=== PATIENT | male | born 1975 | race Caucasian/White ===

== ENCOUNTER 2024-01-09 12:55 | Emergency (ER) | payer OTHER, SELFPAY ==
[2024-01-09] VITALS (7 sets, daily range): BP systolic 140–154; BP diastolic 92–98; PULSE 72–87; RESP 15–18; TEMP 36.6; O2SAT 96–99
--- NOTE | 2024-01-09 | ECG_ITS ---
Test Date: 2024-01-09 15:58:45 Measurements Intervals [place] Rate: 79 P: 19 [place]: 179 QRS: -28 QRSD: 92 T: 61 QT: 382 QTc: 438 Interpretive Statements SINUS RHYTHM DELAYED PRECORDIAL R/S TRANSITION BASELINE ARTIFACT- V2-V6 BORDERLINE ECG No previous ECG available for comparison Electronically Signed On 01-09-2024 16:40:23 OIL BURNER JOURNEYMAN by Volodymyr Padgett D.O.
--- NOTE | ~2024-01-09 | XR_ITS ---
EXAMINATION: XR chest 2V DATE: 01/09/2024 14:14 INDICATION: Cough. TECHNIQUE: Frontal and lateral views of the chest were obtained. COMPARISON: None. FINDINGS: There is no pneumonia, pleural effusion, or pneumothorax. The heart size is normal. IMPRESSION: 1. No acute cardiopulmonary disease. Reviewed, dictated and finalized at location A. APIST SPEECH
--- NOTE | ~2024-01-09 | CT_ITS ---
Clinical indication:Cough shortness of breath and chest pain COMPARISON:Reference is made to plain film evaluation of the chest performed 5 hours earlier TECHNIQUE: Multiple contiguous axial images of the chest were performed following the administration of intravenous contrast. DLP: 707 mGy-cm FINDINGS: LUNG:The lungs are clear. MEDIASTINUM:No pathologically enlarged or morphologically suspicious lymph nodes are identified withi n the mediastinum. HEART:The heart is enlarged, without pericardial effusion. SOFT TISSUES OF THE CHEST: Incidental notation is made of gynecomastia. BONES OF THE CHEST: No acute compression fractures. No lytic or blastic lesions. VISUALIZED PORTION OF THE UPPER ABDOMEN: Unremarkable. IMPRESSION: Unremarkable contrast-enhanced CT of the chest, as detailed above. Reviewed, dictated and finalized at location A. RAL DISTRICT CLERK
--- NOTE | 2024-01-09 14:03 | ED_ITS ---
HPI - URI/Sore Throat General Chief Complaint: Upper Respiratory Infection <Cristina Saha PA-C - Last Filed: 01/09/24 14:04> Stated Complaint: cough, SOB <Cristina Saha PA-C - Last Filed: 01/09/24 14:04> Time Seen by Provider: 01/09/24 16:59 <Cristina Saha PA-C - Last Filed: 01/09/24 14:04> Focused HPI: 48-year-old male presents emergency department for cough and congestion for 1 week. Patient reports positive sick contacts at work. Reports of productive cough and pain with coughing. Denies fever, nausea or vomiting. He has history of ANGELICA and smoking 1 pack a day for 25 years. Denies history of asthma or COPD GENERAL: Well-appearing, well-nourished, and in no acute distress. HEAD: Normocephalic, atraumatic. CHEST: Inspiratory expiratory rhonchi in the left upper lung field, otherwise clear to auscultation. No wheezing or rales. No respiratory distress. HEART: Regular rate and rhythm.? NEURO: ?Alert and oriented x3. Patient screened in triage and initial orders placed.? ?Additional care and disposition to be based upon?diagnostic testing and treatment. <Cristina Saha PA-C - Last Filed: 01/09/24 14:04> Focused HPI: 48-year-old male presents emergency department for cough and congestion for 1 week. Patient reports positive sick contacts at work. Reports of productive cough and pain with coughing. Denies fever, nausea or vomiting. He has history of ANGELICA and smoking 1 pack a day for 25 years. Denies history of asthma or COPD GENERAL: Well-appearing, well-nourished, and in no acute distress. HEAD: Normocephalic, atraumatic. CHEST: Inspiratory expiratory rhonchi in the left upper lung field, otherwise clear to auscultation. No wheezing or rales. No respiratory distress. HEART: Regular rate and rhythm.? NEURO: ?Alert and oriented x3. Patient screened in triage and initial orders placed.? ?Additional care and disposition to be based upon?diagnostic testing and treatment. <Kerri Bryant PA-C - Last Filed: 01/09/24 22:02> Source: patient <SHAHLA [place] Last Filed: 01/09/24 22:02> Mode of arrival: ambulatory <SHAHLA [place] Last Filed: 01/09/24 22:02> Limitations: no limitations <SHAHLA [place] Last Filed: 01/09/24 22:02> History of Present Illness HPI Narrative: Agree with above HPI. Does report mild occasional shortness of breath. Denies lower extremity edema or fevers. <SHAHLA [place] Last Filed: 01/09/24 22:02> Related Data Allergies/Adverse Reactions: Allergies Allergy/AdvReac Type Severity Reaction Status Date / Time No Known Allergies Allergy Mild Verified 06/14/17 10:40 <SHAHLA Leung Last Filed: 01/09/24 14:04> Review of Systems Review of Systems: All systems reviewed & are unremarkable except as noted in HPI. <SHAHLA [place] Last Filed: 01/09/24 22:02> All systems reviewed & are unremarkable except as noted in HPI and below <SHAHLA [place] Last Filed: 01/09/24 22:02> Exam Narrative: GENERAL: Well appearing, obese with BMI of 37.9, non-toxic, in no acute distress. HEAD: Normocephalic, atraumatic. RESPIRATORY: Airway patent, respirations nonlabored. Diffuse rhonchi throughout lung bases bilaterally with occasional expiratory wheezing. No stridor or distress. CARDIOVASCULAR: Regular rate and rhythm without murmurs, rubs, or gallops. Peripheral pulses intact. MUSCULOSKELETAL: Moves all extremities. No gross deformities. SKIN: Warm, dry, normal color. NEURO: A&O X3. Speech clear. PSYCHIATRIC: Appropriate mood and affect. Normal interaction. <SHAHLA [place] Last Filed: 01/09/24 22:02> Course Vital Signs Vital signs: Vital Signs Temperature 97.8 F 01/09/24 13:00 Pulse Rate 86 01/09/24 13:00 Respiratory Rate 15 01/09/24 13:00 Blood Pressure 154/96 H 01/09/24 13:00 Pulse Oximetry 99 01/09/24 13:00 Temperature 97.9 F 01/09/24 20:41 Pulse Rate 87 01/09/24 20:41 Respiratory Rate 16 01/09/24 20:41 Blood Pressure 140/98 H 01/09/24 20:41 Pulse Oximetry 98 01/09/24 20:41 Oxygen Delivery Room Air 01/09/24 16:58 <Cristina Saha PA-C - Last Filed: 01/09/24 14:04> Vital Signs Temperature 97.8 F 01/09/24 13:00 Pulse Rate 86 01/09/24 13:00 Respiratory Rate 15 01/09/24 13:00 Blood Pressure 154/96 H 01/09/24 13:00 Pulse Oximetry 99 01/09/24 13:00 Temperature 97.9 F 01/09/24 20:41 Pulse Rate 87 01/09/24 20:41 Respiratory Rate 16 01/09/24 20:41 Blood Pressure 140/98 H 01/09/24 20:41 Pulse Oximetry 98 01/09/24 20:41 Oxygen Delivery Room Air 01/09/24 16:58 <Kerri Bryant PA-C - Last Filed: 01/09/24 22:02> MDM - URI/Sore Throat MDM Narrative Medical decision making narrative: Patient presented to ED with several day -week history of cough, congestion, mild shortness of breath. Vital signs are stable upon arrival. Patient is afebrile here. Oxygen stable on room air. Patient with diffuse rhonchi and occasional expiratory wheezing on exam. Nebulizer machine ordered. CBC with white blood cell count of 11.9. CMP is unremarkable. Viral swabs are negative. EKG without concerning ST changes. Some baseline artifact. Troponin is undetectable. Initial chest x-ray is clear. Suspicious for bacterial process versus COPD flare. Low suspicion for PE. No tachycardia or hypoxia, no evidence of DVT on exam. Patient denies previous diagnosis of COPD, but is a daily smoker. CT of chest obtained and also unremarkable. Patient feeling better after nebulizer treatment. Will cover for potential bacterial process given leukocytosis with antibiotics, steroid pack, will also prescribe inhaler and Tessalon Perles. Patient advised to have close follow-up with PCP for further evaluation. He was given strict return precautions. He agrees with plan and feels comfortable going home. Discharged in stable condition. Vital signs stable at time of D/C. <Kerri Bryant PA-C - Last Filed: 01/09/24 22:02> Medical Records Attestation: I reviewed the patient's medical records. <Kerri Bryant PA-C - Last Filed: 01/09/24 22:02> Lab Data Attestation: I reviewed the patient's lab results. <Kerri Bryant PA-C - Last Filed: 01/09/24 22:02> Result diagrams: 01/09/24 15:58 01/09/24 15:58 <Cristina Saha PA-C - Last Filed: 01/09/24 14:04> Labs: Lab Results 01/09/24 01/09/24 Range/Units 15:56 15:58 WBC 11.9 H (4.5-10.0) K/mm3 RBC 5.29 (4.6-6.20) M/mm3 Hgb 17.0 (14.0-18.0) g/dL Hct 47.5 (42.0-52.0) % MCV 89.8 (80-100) fl MCH 32.1 (26-34) pg MCHC 35.8 (32-36) g/dl RDW 12.3 (11.5-14.5) % Plt Count 197 (150-375) k/mm3 MPV 11.3 H (7.4-10.4) fl Immature Gran % (Auto) 0.4 (0-0.5) % Neut % (Auto) 70.0 (45.5-73.1) % Lymph % (Auto) 23.4 (18.3-44.2) % [place] % (Auto) 4.9 (2.6-8.5) % Eos % (Auto) 0.8 (0-4.4) % Baso % (Auto) 0.5 (0.2-1.2) % Lymph # (Auto) 2.78 (0.9-3.2) K/mm3 [place] # (Auto) 0.6 (0.1-0.6) K/mm3 Eos # (Auto) 0.1 (0-0.3) K/mm3 Baso # (Auto) 0.1 (0.0-0.1) K/mm3 Abs Immat Gran (auto) 0.05 H (0.00-0.031) K/mm3 Absolute Neuts (auto) 8.3 H (1.3-6.7) K/mm3 Absolute Nucleated RBC 0.000 (0.0-0.012) K/mm3 Nucleated RBC % 0.0 (0.0-0.2) % Sodium 138 (137-145) mmol/L Potassium 3.4 (3.4-5.0) mmol/L Chloride 105 (98-107) mmol/L Carbon Dioxide 21 L (22-30) mmol/L Anion Gap 12 (4-12) mmol/L BUN 10 (9-20) mg/dL Creatinine 0.80 (0.7-1.3) mg/dL Estim Creat Clear Calc 121 ml/min Estimated GFR > 60 (59 - ) Glucose 143 H (65-110) mg/dL Calcium 9.4 (8.4-10.2) mg/dL Total Bilirubin 0.4 (0.2-1.3) mg/dL AST 32 (17-59) U/L ALT 29 (6-50) U/L Alkaline Phosphatase 82 (38-126) U/L Troponin I < 0.012 (0.000-0.034) ng/mL Total Protein 8.0 (6.3-8.2) g/dL Albumin 4.6 (3.5-5.1) g/dL Influenza A (RT-PCR) Negative (Negative) Influenza B (RT-PCR) Negative (Negative) RSV (RT-PCR) Negative (Negative) SARS-CoV-2 RNA (RT-PCR) Negative (Negative) <Cristina Saha PA-C - Last Filed: 01/09/24 14:04> Lab Results 01/09/24 01/09/24 Range/Units 15:56 15:58 WBC 11.9 H (4.5-10.0) K/mm3 RBC 5.29 (4.6-6.20) M/mm3 Hgb 17.0 (14.0-18.0) g/dL Hct 47.5 (42.0-52.0) % MCV 89.8 (80-100) fl MCH 32.1 (26-34) pg MCHC 35.8 (32-36) g/dl RDW 12.3 (11.5-14.5) % Plt Count 197 (150-375) k/mm3 MPV 11.3 H (7.4-10.4) fl Immature Gran % (Auto) 0.4 (0-0.5) % Neut % (Auto) 70.0 (45.5-73.1) % Lymph % (Auto) 23.4 (18.3-44.2) % [place] % (Auto) 4.9 (2.6-8.5) % Eos % (Auto) 0.8 (0-4.4) % Baso % (Auto) 0.5 (0.2-1.2) % Lymph # (Auto) 2.78 (0.9-3.2) K/mm3 [place] # (Auto) 0.6 (0.1-0.6) K/mm3 Eos # (Auto) 0.1 (0-0.3) K/mm3 Baso # (Auto) 0.1 (0.0-0.1) K/mm3 Abs Immat Gran (auto) 0.05 H (0.00-0.031) K/mm3 Absolute Neuts (auto) 8.3 H (1.3-6.7) K/mm3 Absolute Nucleated RBC 0.000 (0.0-0.012) K/mm3 Nucleated RBC % 0.0 (0.0-0.2) % Sodium 138 (137-145) mmol/L Potassium 3.4 (3.4-5.0) mmol/L Chloride 105 (98-107) mmol/L Carbon Dioxide 21 L (22-30) mmol/L Anion Gap 12 (4-12) mmol/L BUN 10 (9-20) mg/dL Creatinine 0.80 (0.7-1.3) mg/dL Estim Creat Clear Calc 121 ml/min Estimated GFR > 60 (59 - ) Glucose 143 H (65-110) mg/dL Calcium 9.4 (8.4-10.2) mg/dL Total Bilirubin 0.4 (0.2-1.3) mg/dL AST 32 (17-59) U/L ALT 29 (6-50) U/L Alkaline Phosphatase 82 (38-126) U/L Troponin I < 0.012 (0.000-0.034) ng/mL Total Protein 8.0 (6.3-8.2) g/dL Albumin 4.6 (3.5-5.1) g/dL Influenza A (RT-PCR) Negative (Negative) Influenza B (RT-PCR) Negative (Negative) RSV (RT-PCR) Negative (Negative) SARS-CoV-2 RNA (RT-PCR) Negative (Negative) <Kerri Bryant PA-C - Last Filed: 01/09/24 22:02> Imaging Data Attestation: I personally reviewed and interpreted this imaging study as follows: <Kerri Bryant PA-C - Last Filed: 01/09/24 22:02> Radiologist's impression: ITS Impressions Chest X-Ray 01/09/24 14:17 IMPRESSION: 1. No acute cardiopulmonary disease. Chest CT 01/09/24 20:09 IMPRESSION: Unremarkable contrast-enhanced CT of the chest, as detailed above. <Kerri Bryant PA-C - Last Filed: 01/09/24 22:02> ECG Data EKG #1: Attestation: I personally reviewed and interpreted this ECG as follows: <Kerri Bryant PA-C - Last Filed: 01/09/24 22:02> ECG completion date: 01/09/24 <Kerri Bryant PA-C - Last Filed: 01/09/24 22:02> ECG completion time: 15:58 <Kerri Bryant PA-C - Last Filed: 01/09/24 22:02> EKG Interpretation: normal rate (79), sinus rhythm, non-specific ST changes and other (baseline artifact and wander) <Kerri Bryant PA-C - Last Filed: 01/09/24 22:02> Discharge Plan Discharge Clinical Impression: Upper respiratory infection Qualifiers: URI type: unspecified URI Qualified Code(s): J06.9 - Acute upper respiratory infection, unspecified <Cristina Saha PA-C - Last Filed: 01/09/24 14:04> Patient Disposition: Home, Self-Care <Cristina Saha PA-C - Last Filed: 01/09/24 14:04> Condition: Stable <Cristina Saha PA-C - Last Filed: 01/09/24 14:04> Instructions: Antibiotic Form, How to Stop Smoking (ED), COPD (Chronic Obstructive Pulmonary Disease) (ED), Cold Symptoms (ED), Pneumonia (ED) <Cristina Saha PA-C - Last Filed: 01/09/24 14:04> Additional Instructions: Take antibiotics and steroids as prescribed. Utilize inhaler as needed for shortness of breath. Utilize Tessalon Perles as needed for cough. Tylenol and Ibuprofen for discomfort and/or fevers. Recommend [id number] cough and cold medicines for symptom relief, Delsym, Mucinex, DayQuil, NyQuil, Sudafed, Robitussin, TheraFlu. Follow with primary care doctor for further evaluation. Call office to make appointment and establish care. Return to the ED if you experience chest pain, difficulty breathing, unable to keep down food or drink, severe pain, or any other symptoms of concern. <Cristina Saha PA-C - Last Filed: 01/09/24 14:04> Prescriptions: New azithromycin [Zithromax Z-Ramez] 250 mg tablet See Rx Instructions .ROUTE .COMPLEX Qty: 6 0RF Rx Instructions: For 250 mg dose pack: take 500 mg today (day 1), then 250 mg for 4 days (days 2-5) methylprednisolone [Medrol (Ramez)] 4 mg tablets,dose pack See Rx Instructions PO .COMPLEX Qty: 21 0RF Rx Instructions: orally per package directions benzonatate 200 mg capsule 200 mg PO TID PRN (Reason: cough) Qty: 15 0RF albuterol sulfate 90 mcg/actuation HFA aerosol inhaler 2 puff inhalation QID PRN (Reason: shortness of breath or wheezing) Qty: 6.7 0RF <Cristina Saha PA-C - Last Filed: 01/09/24 14:04> Follow-up/Referrals: Glynn Luu MD [Physician] - (PRIMARY CARE) PHYSICIAN,LAW PROFESSOR [Non-Staff] - <Cristina Saha PA-C - Last Filed: 01/09/24 14:04> Stand Alone Forms: Work/School Release IP <Cristina Saha PA-C - Last Filed: 01/09/24 14:04> Time of Disposition: 20:25 <Cristina Saha PA-C - Last Filed: 01/09/24 14:04> 20:25 <Kerri Bryant PA-C - Last Filed: 01/09/24 22:02>
[2024-01-09 16:04] LABS: Basophils Absolute Auto 0.1 K/mm3 (0.0-0.1); Basophils Percent Auto 0.5 % (0.2-1.2); Eosinophils Absolute Auto 0.1 K/mm3 (0-0.3); Eosinophils Percent Auto 0.8 % (0-4.4); Hematocrit 47.5 % (42.0-52.0); Immature Granulocyte Absolute 0.05 K/mm3 (0.00-0.031); Immature Granulocyte Percent A 0.4 % (0-0.5); Lymphocytes Absolute Auto 2.78 K/mm3 (0.9-3.2); Lymphocytes Percent Auto 23.4 % (18.3-44.2); Mean Corpuscular HGB Conc 35.8 g/dl (32-36); Mean Corpuscular Hemoglobin 32.1 pg (26-34); Mean Corpuscular Volume 89.8 fl (80-100); Mean Platelet Volume 11.3 fl (7.4-10.4); Monocytes Absolute Auto 0.6 K/mm3 (0.1-0.6); Monocytes Percent Auto 4.9 % (2.6-8.5); Neutrophils Absolute Auto 8.3 K/mm3 (1.3-6.7); Platelet Count Result 197 k/mm3 (150-375); Red Blood Count 5.29 M/mm3 (4.6-6.20); Red Cell Distribution Width 12.3 % (11.5-14.5); White Blood Count 11.9 K/mm3 (4.5-10.0)
[2024-01-09 16:16] LABS: Alanine Aminotransferase 29 U/L (6-50); Albumin Level 4.6 g/dL (3.5-5.1); Alkaline Phosphatase 82 U/L (38-126); Anion Gap 12 mmol/L (4-12); Aspartate Amino Transferase 32 U/L (17-59); Bilirubin,Total 0.4 mg/dL (0.2-1.3); Blood Urea Nitrogen 10 mg/dL (9-20); Calcium 9.4 mg/dL (8.4-10.2); Carbon Dioxide 21 mmol/L (22-30); Chloride 105 mmol/L (98-107); Estimated CRCL calculation 121 ml/min; Estimated Glomerular Filt Rate > 60; Glucose 143 mg/dL (65-110); Potassium 3.4 mmol/L (3.4-5.0); Sodium 138 mmol/L (137-145)
[2024-01-09 16:42] LABS: Influenza A QL RT-PCR Negative (Negative); Influenza B QL RT-PCR Negative (Negative); RSV RNA, RT-PCR Negative (Negative); SARS-CoV-2 RNA PCR Negative (Negative)
--- NOTE | 2024-01-09 17:45 | ECG_ITS ---
Test Date: 2024-01-09 18:00:38 Measurements Intervals [place] Rate: 68 P: 42 MT: 188 QRS: -28 QRSD: 79 T: 60 QT: 381 QTc: 407 Interpretive Statements SINUS RHYTHM BASELINE ARTIFACT- I, II, III NORMAL ECG Compared to ECG 01/09/2024 15:58:45 No significant changes Electronically Signed On 01-09-2024 20:18:45 TRANSMITTER OPERATOR by Volodymyr Padgett D.O.
[2024-01-09] MEDS: LEVALBUTEROL NEB 1.25 MG/3 ML 2.5 MG INHALATION (17:59)
[2024-01-09] MEDS: IPRATROPIUM BR 0.02% INH SOLN 0.5 MG/2.5 ML VIAL 1.5 MG INHALATION (17:59)
[2024-01-09 18:10] LABS: Troponin I < 0.012 ng/mL (0.000-0.034)
== END 2024-01-09 20:43 | disposition home or self-care (01) ==
PROVIDERS: Physician Assistant; Emergency Provider Physician Assistant
DX: J06.9 Acute upper respiratory infection, unspecified (principal); G47.33 Obstructive sleep apnea (adult) (pediatric); F17.210 Nicotine dependence, cigarettes, uncomplicated; Z20.822 Contact with and (suspected) exposure to COVID-19
CPT/HCPCS: 36415; 71046; 71260; 80053; 84484; 85025; 87637; 93005; 94640; 99284; Q9967

== ENCOUNTER 2024-09-21 13:53 | Emergency (ER) | payer OTHER, SELFPAY ==
--- NOTE | ~2024-09-21 | XR_ITS ---
XR ankle RT min 3V 09/21/2024 16:05 Indication: Right ankle pain Procedure: 4 views right ankle Comparison: No prior studies for comparison. Findings: No fracture, subluxation or dislocation. There is a degenerative calcaneal enthesophyte. No foreign bodies. There is sclerosis along the distal aspect of the tibia. Impression: 1: No acute fracture or traumatic malalignment. Reviewed, dictated and finalized at location B. Impression: 1: No acute fracture or traumatic malalignment.
--- OUTSIDE RECORDS SUMMARY | 2024-09-21 14:00 | XMS_ITS | Clinical Summary ---
Author Organization [employer] [facility] Address [address] [place] [address] Phone Care Team Providers Care Checker In Name Role Phone Unavailable Primary Care Provider Unavailabl e Social History Tobacco Use Types Packs/Day Years Used Date Smoking Tobacco: Never Assessed Sex and Gender Information Value Date Recorded Sex Assigned at Not on file Legal Sex Male 11:56 AM CDT Gender Identity Not on file Sexual Orientation Not on file Plan of Treatment Health Maintenance Due Date Last Done Comments DTAP/TDAP/TD VACCINES (1 - Tdap) 06/15/1995 HEPATITIS B VACCINES (1 of 3 - 19+ 3-dose series) 05/27 COLORECTAL SCREENING 2021 Colorectal Cancer Screening 2021 FIT-DNA Q 3 years 2021 FIT/FOBT Q 1 year 2021 Flex Sig/CT Colonography Q 5 years 2021 INFLUENZA VACCINE (#1) 2024
[2024-09-21 14:01] VITALS: BP 139/95; PULSE 82; RESP 20; TEMP 36.6; O2SAT 97
--- OUTSIDE RECORDS SUMMARY | 2024-09-21 14:33 | XMS_ITS | Clinical Summary ---
Author Organization [facility] Address [address] [place] [address] Phone Care Team Providers Care Order Processing Manager Name Role Phone Unavailable Primary Care Provider [...]
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
[2024-09-21 18:32] LABS: Hematocrit 45.0 % (42.0-52.0); Hemoglobin 15.8 g/dL (14.0-18.0); Immature Granulocyte Percent A 0.6 % (0-0.5); Lymphocytes Absolute Auto 3.84 K/mm3 (0.9-3.2); Mean Corpuscular HGB Conc 35.1 g/dl (32-36); Mean Corpuscular Hemoglobin 31.5 pg (26-34); Mean Corpuscular Volume 89.6 fl (80-100); Nucleated Red Blood Cells Absolute Auto 0.000 K/mm3 (0.0-0.012); Nucleated Red Blood Cells Perc 0.0 % (0.0-0.2); Platelet Count Result 245 k/mm3 (150-375); Red Blood Count 5.02 M/mm3 (4.6-6.20); White Blood Count 10.3 K/mm3 (4.5-10.0)
[2024-09-21 18:44] LABS: INR 1.0; Prothrombin Time 13.2 Seconds (11.1-14.7)
[2024-09-21 18:45] LABS: Partial Thromboplastin Time 33.3 Seconds (22.3-36.8)
[2024-09-21 18:49] LABS: Alanine Aminotransferase 40 U/L (6-50); Albumin Level 4.4 g/dL (3.5-5.1); Alkaline Phosphatase 87 U/L (38-126); Anion Gap 12 mmol/L (4-12); Aspartate Amino Transferase 43 U/L (17-59); Bilirubin,Total 0.5 mg/dL (0.2-1.3); Blood Urea Nitrogen 11 mg/dL (9-20); CRP < 0.5 mg/dL (<1.0); Calcium 9.5 mg/dL (8.4-10.2); Carbon Dioxide 18 mmol/L (22-30); Chloride 108 mmol/L (98-107); Estimated CRCL calculation 109 ml/min; Estimated Glomerular Filt Rate > 60; Glucose 85 mg/dL (65-110); Potassium 3.7 mmol/L (3.4-5.0); Sodium 138 mmol/L (137-145); Total Protein 8.0 g/dL (6.3-8.2)
[2024-09-21] MEDS: KETOROLAC 15 MG/ML VIAL (*BKC) IV PUSH (19:13)
== END 2024-09-21 20:00 | disposition home or self-care (01) ==
PROVIDERS: Registered Nurse; Emergency Provider Emergency Medicine
DX: S91.001A Unspecified open wound, right ankle, initial encounter (principal); X58.XXXA Exposure to other specified factors, initial encounter
CPT/HCPCS: 36415; 73610; 80053; 83605; 85025; 85610; 85730; 86140; 96361; 96374; 96375; 99284; J0690; J1885

== ENCOUNTER 2024-10-12 16:46 | Emergency (ER) | payer OTHER, SELFPAY ==
--- NOTE | ~2024-10-12 | CT_ITS ---
CT scan of the right ankle CLINICAL HISTORY: Osteomyelitis TECHNIQUE: Following intravenous administration of 100 cc of Omnipaque 350 contrast material, axial imaging of the right ankle was performed. Sagittal and coronal reformatted images were constructed. Dose reduction technique was used on this scan by utilizing automated exposure control and iterative re construction technique. The dose-length product (DLP) was 413.87 mGy-cm. Findings: No acute fracture or dislocation seen. Joint spaces are intact. No significant joint effusion evident. There is soft tissue ulcer at the medial aspect of the ankle at the level distal tibia. There is associated soft tissue thickening in this region without definite abscess. Remaining soft tissues are grossly unremarkable for CT scan. IMPRESSION: Soft tissue ulcer at the medial aspect of the ankle at the level of the distal tibia. No definite abscess. No definite CT evidence for osteomyelitis. MR would be more sensitive for early osteomyelitis, and is recommended for further evaluation as indicated. Reviewed, dictated and finalized at [facility].
--- NOTE | ~2024-10-12 | XR_ITS ---
XR ankle RT min 3V 10/12/2024 18:11 Indication: Wound over medial malleolus Procedure: 4 views right ankle Comparison: 09/21/2024 Findings: Mild degenerative changes of the ankle. Mild soft tissue swelling at the medial malleolus. No evidence for osteomyelitis. No erosive changes. There is evidence of cortical sclerosis involving the metaphysis of the distal tibia. There is mild periosteal reaction along the distal tibia. Small d egenerative calcaneal enthesophyte. Impression: 1: Mild periosteal reaction along the distal tibia with adjacent sclerosis. Consider underlying osteo myelitis in the appropriate clinical setting. Consider further evaluation with MRI of the ankle with contrast. Reviewed, dictated and finalized at location A. Impression: 1: Mild periosteal reaction along the distal tibia with adjacent sclerosis. 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 Consider fu rther evaluation with MRI of the ankle with contrast.
--- OUTSIDE RECORDS SUMMARY | 2024-10-12 16:48 | XMS_ITS | Clinical Summary ---
Author Organization [email or web address] [facility] Address [address] [place] [address] Phone Care Team Providers Care Refrigeration Insulator Name Role Phone Unavailable Primary Care Provider [...]
[2024-10-12 16:51] VITALS: BP 145/94; PULSE 77; RESP 18; TEMP 36.7; O2SAT 97
--- NOTE | 2024-10-12 17:58 | ED_ITS ---
HPI - Wound/Laceration General Chief Complaint: Wound/Laceration <Rossi Huff PA-C - Last Filed: 10/13/24 10:40> Stated Complaint: wound on ankle- vomiting <Rossi Huff PA-C - Last Filed: 10/13/24 10:40> Time Seen by Provider: 10/12/24 17:58 <Rossi Huff PA-C - Last Filed: 10/13/24 10:40> Focused HPI: This is a 49 year old male that presents to the ER for a wound on his right leg. Reports this has been present for 3 months. He was seen on the and was started on antibiotics. Culture resulted as staph. Reports he is supposed to have an MRI done for a possible bone infection. He has seen podiatry. Reports he feels ill and is vomiting the last couple of days. Denies fevers. GENERAL: Well-appearing, well-nourished, and in no acute distress. HEAD: Normocephalic, atraumatic. CHEST: No respiratory distress. HEART: Regular rate NEURO: ?Alert and oriented x3. Patient screened in triage and initial orders placed.? ?Additional care and disposition to be based upon?diagnostic testing and treatment. <Rossi Huff PA-C - Last Filed: 10/13/24 10:40> History of Present Illness HPI narrative: Agree with the HPI <Thien Cevallos MD - Last Filed: 10/12/24 22:22> Related Data Allergies/Adverse Reactions: Allergies Allergy/AdvReac Type Severity Reaction Status Date / Time No Known Allergies Allergy Mild Verified 09/21/24 14:07 <Rossi Huff PA-C - Last Filed: 10/13/24 10:40> Review of Systems 2 Review of Systems: Gen.: Denies fevers or chills Eyes: Denies eye pain or visual change ENT: Denies congestion Respiratory: Denies shortness of breath or cough CV: Denies chest pain or palpitations GI: Denies abdominal pain nausea, emesis or diarrhea denies burning, urgency, frequency or hematuria Musculoskeletal: Denies back pain or muscle pain Neuro: Denies numbness, tingling, weakness or focal weakness Skin: Wound to the right ankle Except as documented, all other systems reviewed and negative <Thien Cevallos MD - Last Filed: 10/12/24 22:22> Exam 2 Narrative: APPEARANCE: No acute distress, nontoxic, resting in bed EYES: EOMI HEENT: Normocephalic, atraumatic, OMM RESPIRATORY: No respiratory distress Clear to auscultation bilaterally with no rhonchi wheezing or rales. CARDIOVASCULAR: Regular rate and rhythm without murmurs rubs or gallops. ABDOMINAL: Soft, nontender, nondistended, no rebound or guarding MUSCULOSKELETAl: Moves all extremities. No clubbing, cyanosis or edema. NEURO: Awake and alert. Following commands, speech normal, no focal deficits SKIN:: Tunneling wound superior to the right medial malleolus with purulence within it. PSYCHIATRIC: Normal affect/mood, <Thien Cevallos MD - Last Filed: 10/12/24 22:22> Course Vital Signs Vital signs: Vital Signs Temperature 98.0 F 10/12/24 16:51 Pulse Rate 77 10/12/24 16:51 Respiratory Rate 18 10/12/24 16:51 Blood Pressure 145/94 H 10/12/24 16:51 Pulse Oximetry 97 10/12/24 16:51 Oxygen Delivery Room Air 10/12/24 16:51 Temperature 98.7 F 10/13/24 02:31 Pulse Rate 86 10/13/24 02:31 Respiratory Rate 16 10/13/24 02:31 Blood Pressure 133/71 10/13/24 02:31 Pulse Oximetry 97 10/13/24 02:31 Oxygen Delivery Room Air 10/12/24 16:51 <Rossi Huff PA-C - Last Filed: 10/13/24 10:40> Vital Signs Temperature 98.0 F 10/12/24 16:51 Pulse Rate 77 10/12/24 16:51 Respiratory Rate 18 10/12/24 16:51 Blood Pressure 145/94 H 10/12/24 16:51 Pulse Oximetry 97 10/12/24 16:51 Oxygen Delivery Room Air 10/12/24 16:51 Temperature 98.7 F 10/13/24 02:31 Pulse Rate 86 10/13/24 02:31 Respiratory Rate 16 10/13/24 02:31 Blood Pressure 133/71 10/13/24 02:31 Pulse Oximetry 97 10/13/24 02:31 Oxygen Delivery Room Air 10/12/24 16:51 <Thien Cevallos MD - Last Filed: 10/12/24 22:22> Vital Signs Temperature 98.0 F 10/12/24 16:51 Pulse Rate 77 10/12/24 16:51 Respiratory Rate 18 10/12/24 16:51 Blood Pressure 145/94 H 10/12/24 16:51 Pulse Oximetry 97 10/12/24 16:51 Oxygen Delivery Room Air 10/12/24 16:51 Temperature 98.7 F 10/13/24 02:31 Pulse Rate 86 10/13/24 02:31 Respiratory Rate 16 10/13/24 02:31 Blood Pressure 133/71 10/13/24 02:31 Pulse Oximetry 97 10/13/24 02:31 Oxygen Delivery Room Air 10/12/24 16:51 <Jeronimo Neumann MD - Last Filed: 10/13/24 02:31> MDM - Wound/Laceration MDM Narrative Medical decision making narrative: 49-year-old male presenting to the ED for right ankle wound. Patient already taken antibiotics and had an MRI scheduled but this was rescheduled due to staffing issues. Patient was concerned as the wound has continued despite the antibiotics. There is no erythematous streaking. Mild tenderness around the area. There is suspicion that maybe tunneling and could be a developing osteomyelitis. He had a leukocytosis of 11. CRP negative. Use are negative. X-ray ankle did show possible mild periosteal reaction that could be consistent with osteomyelitis. Will obtain CT ankle to further characterize as MRI not available at this time. Patient will be started empirically on cefepime, vanc, flagyl. CT ankle pending. Signed out to incoming provider. <Thien Cevallos MD - Last Filed: 10/12/24 22:22> 49-year-old male presenting to the ED for right ankle wound. Patient already taken antibiotics and had an MRI scheduled but this was rescheduled due to staffing issues. Patient was concerned as the wound has continued despite the antibiotics. There is no erythematous streaking. Mild tenderness around the area. There is suspicion that maybe tunneling and could be a developing osteomyelitis. He had a leukocytosis of 11. CRP negative. Use are negative. X-ray ankle did show possible mild periosteal reaction that could be consistent with osteomyelitis. Will obtain CT ankle to further characterize as MRI not available at this time. Patient will be started empirically on cefepime, vanc, flagyl. CT ankle pending. Signed out to incoming provider. --- Patient is currently afebrile but does have a leukocytosis 11.0 hemoglobin of 15.3. No acute abnormalities on his CMP patient had a negative CRP, negative ESR and a hemoglobin A1c of 5.5. Ankle x-ray was concerning and did recommend a ankle CT. Ankle CT showed no abscess amenable to drainage in showed no osteomyelitis. Patient does prefer to be discharged home. Patient was treated with IV doses of cefepime vanc and Flagyl in the ED. Patient will be discharged home on clindamycin. Patient states he does have close follow-up on the have outpatient MRI. Patient was strongly encouraged to return to the emergency department if he has any worsening symptoms. <Jeronimo Neumann MD - Last Filed: 10/13/24 02:31> Lab Data Attestation: I reviewed the patient's lab results. <Thien Cevallos MD - Last Filed: 10/12/24 22:22> Result diagrams: 10/12/24 19:25 10/12/24 19:25 <Rossi Huff PA-C - Last Filed: 10/13/24 10:40> Labs: Lab Results 10/12/24 Range/Units 19:25 WBC 11.0 H (4.5-10.0) K/mm3 RBC 4.84 (4.6-6.20) M/mm3 Hgb 15.3 (14.0-18.0) g/dL Hct 43.5 (42.0-52.0) % MCV 89.9 (80-100) fl MCH 31.6 (26-34) pg MCHC 35.2 (32-36) g/dl RDW 12.4 (11.5-14.5) % Plt Count 236 (150-375) k/mm3 MPV 10.9 H (7.4-10.4) fl Immature Gran % (Auto) 0.5 (0-0.5) % Neut % (Auto) 60.6 (45.5-73.1) % Lymph % (Auto) 29.1 (18.3-44.2) % [place] % (Auto) 8.3 (2.6-8.5) % Eos % (Auto) 0.7 (0-4.4) % Baso % (Auto) 0.8 (0.2-1.2) % Lymph # (Auto) 3.19 (0.9-3.2) K/mm3 [place] # (Auto) 0.9 H (0.1-0.6) K/mm3 Eos # (Auto) 0.1 (0-0.3) K/mm3 Baso # (Auto) 0.1 (0.0-0.1) K/mm3 Abs Immat Gran (auto) 0.05 H (0.00-0.031) K/mm3 Absolute Neuts (auto) 6.7 (1.3-6.7) K/mm3 Absolute Nucleated RBC 0.000 (0.0-0.012) K/mm3 Nucleated RBC % 0.0 (0.0-0.2) % ESR 13 (0-20) mm/hr Sodium 138 (137-145) mmol/L Potassium 3.7 (3.4-5.0) mmol/L Chloride 107 (98-107) mmol/L Carbon Dioxide 21 L (22-30) mmol/L Anion Gap 10 (4-12) mmol/L BUN 9 (9-20) mg/dL Creatinine 0.82 (0.7-1.3) mg/dL Estim Creat Clear Calc 113 ml/min Estimated GFR > 60 (59 - ) Glucose 94 (65-110) mg/dL Hemoglobin A1c 5.5 (<5.7) % Calcium 9.4 (8.4-10.2) mg/dL C-Reactive Protein 1.1 (<1.0) mg/dL <Rossi Huff PA-C - Last Filed: 10/13/24 10:40> Lab Results 10/12/24 Range/Units 19:25 WBC 11.0 H (4.5-10.0) K/mm3 RBC 4.84 (4.6-6.20) M/mm3 Hgb 15.3 (14.0-18.0) g/dL Hct 43.5 (42.0-52.0) % MCV 89.9 (80-100) fl MCH 31.6 (26-34) pg MCHC 35.2 (32-36) g/dl RDW 12.4 (11.5-14.5) % Plt Count 236 (150-375) k/mm3 MPV 10.9 H (7.4-10.4) fl Immature Gran % (Auto) 0.5 (0-0.5) % Neut % (Auto) 60.6 (45.5-73.1) % Lymph % (Auto) 29.1 (18.3-44.2) % [place] % (Auto) 8.3 (2.6-8.5) % Eos % (Auto) 0.7 (0-4.4) % Baso % (Auto) 0.8 (0.2-1.2) % Lymph # (Auto) 3.19 (0.9-3.2) K/mm3 [place] # (Auto) 0.9 H (0.1-0.6) K/mm3 Eos # (Auto) 0.1 (0-0.3) K/mm3 Baso # (Auto) 0.1 (0.0-0.1) K/mm3 Abs Immat Gran (auto) 0.05 H (0.00-0.031) K/mm3 Absolute Neuts (auto) 6.7 (1.3-6.7) K/mm3 Absolute Nucleated RBC 0.000 (0.0-0.012) K/mm3 Nucleated RBC % 0.0 (0.0-0.2) % ESR 13 (0-20) mm/hr Sodium 138 (137-145) mmol/L Potassium 3.7 (3.4-5.0) mmol/L Chloride 107 (98-107) mmol/L Carbon Dioxide 21 L (22-30) mmol/L Anion Gap 10 (4-12) mmol/L BUN 9 (9-20) mg/dL Creatinine 0.82 (0.7-1.3) mg/dL Estim Creat Clear Calc 113 ml/min Estimated GFR > 60 (59 - ) Glucose 94 (65-110) mg/dL Hemoglobin A1c 5.5 (<5.7) % Calcium 9.4 (8.4-10.2) mg/dL C-Reactive Protein 1.1 (<1.0) mg/dL <Thien Cevallos MD - Last Filed: 10/12/24 22:22> Lab Results 10/12/24 Range/Units 19:25 WBC 11.0 H (4.5-10.0) K/mm3 RBC 4.84 (4.6-6.20) M/mm3 Hgb 15.3 (14.0-18.0) g/dL Hct 43.5 (42.0-52.0) % MCV 89.9 (80-100) fl MCH 31.6 (26-34) pg MCHC 35.2 (32-36) g/dl RDW 12.4 (11.5-14.5) % Plt Count 236 (150-375) k/mm3 MPV 10.9 H (7.4-10.4) fl Immature Gran % (Auto) 0.5 (0-0.5) % Neut % (Auto) 60.6 (45.5-73.1) % Lymph % (Auto) 29.1 (18.3-44.2) % [place] % (Auto) 8.3 (2.6-8.5) % Eos % (Auto) 0.7 (0-4.4) % Baso % (Auto) 0.8 (0.2-1.2) % Lymph # (Auto) 3.19 (0.9-3.2) K/mm3 [place] # (Auto) 0.9 H (0.1-0.6) K/mm3 Eos # (Auto) 0.1 (0-0.3) K/mm3 Baso # (Auto) 0.1 (0.0-0.1) K/mm3 Abs Immat Gran (auto) 0.05 H (0.00-0.031) K/mm3 Absolute Neuts (auto) 6.7 (1.3-6.7) K/mm3 Absolute Nucleated RBC 0.000 (0.0-0.012) K/mm3 Nucleated RBC % 0.0 (0.0-0.2) % ESR 13 (0-20) mm/hr Sodium 138 (137-145) mmol/L Potassium 3.7 (3.4-5.0) mmol/L Chloride 107 (98-107) mmol/L Carbon Dioxide 21 L (22-30) mmol/L Anion Gap 10 (4-12) mmol/L BUN 9 (9-20) mg/dL Creatinine 0.82 (0.7-1.3) mg/dL Estim Creat Clear Calc 113 ml/min Estimated GFR > 60 (59 - ) Glucose 94 (65-110) mg/dL Hemoglobin A1c 5.5 (<5.7) % Calcium 9.4 (8.4-10.2) mg/dL C-Reactive Protein 1.1 (<1.0) mg/dL <Jeronimo Neumann MD - Last Filed: 10/13/24 02:31> Imaging Data Radiologist's impression: Impressions Ankle X-Ray 10/12/24 18:32 Impression: 1: Mild periosteal reaction along the distal tibia with adjacent sclerosis. Consider underlying osteomyelitis in the appropriate clinical setting. Consider further evaluation with MRI of the ankle with contrast. <Thien Cevallos MD - Last Filed: 10/12/24 22:22> Impressions Ankle X-Ray 10/12/24 18:32 Impression: 1: Mild periosteal reaction along the distal tibia with adjacent sclerosis. Consider underlying osteomyelitis in the appropriate clinical setting. Consider further evaluation with MRI of the ankle with contrast. Overnight read CT right ankle No acute fracture dislocation. Medial ankle wound measures approximately 9 x 8 mm and is 5 mm deep. Moderate subjacent phlegmonous change. No drainable fluid collection. No CT evidence of osteo myelitis. Severe peroneal brevis tenosynovitis <Jeronimo Neumann MD - Last Filed: 10/13/24 02:31> Critical Care Time Critical Care Time Critical Care Time: No <Rossi Huff PA-C - Last Filed: 10/13/24 10:40> Discharge Plan Discharge Clinical Impression: Wound of right leg Qualifiers: Encounter type: initial encounter Qualified Code(s): S81.801A - Unspecified open wound, right lower leg, initial encounter <Rossi Huff PA-C - Last Filed: 10/13/24 10:40> Patient Disposition: Home <Rossi Huff PA-C - Last Filed: 10/13/24 10:40> Condition: Stable <Rossi Huff PA-C - Last Filed: 10/13/24 10:40> Instructions: Antibiotic Form <Rossi Huff PA-C - Last Filed: 10/13/24 10:40> Additional Instructions: Antibiotic as directed until completed. Continue to have close follow-up with your physicians outpatient and have your MRI as scheduled. If you have any worsening symptoms please call or return to emergency department <Rossi Huff PA-C - Last Filed: 10/13/24 10:40> Patient Language: [place] <Rossi Huff PA-C - Last Filed: 10/13/24 10:40> Prescriptions: New clindamycin HCl [Cleocin HCl] 300 mg capsule 300 mg PO Q6H 7 Days Qty: 28 0RF No Action azithromycin [Zithromax Z-Ramez] 250 mg tablet See Rx Instructions .ROUTE .COMPLEX Qty: 6 0RF Rx Instructions: For 250 mg dose pack: take 500 mg today (day 1), then 250 mg for 4 days (days 2-5) methylprednisolone [Medrol (Ramez)] 4 mg tablets,dose pack See Rx Instructions PO .COMPLEX Qty: 21 0RF Rx Instructions: orally per package directions benzonatate 200 mg capsule 200 mg PO TID PRN (Reason: cough) Qty: 15 0RF albuterol sulfate 90 mcg/actuation HFA aerosol inhaler 2 puff inhalation QID PRN (Reason: shortness of breath or wheezing) Qty: 6.7 0RF acetaminophen [Tylenol Extra Strength] 500 mg tablet 1,000 mg PO Q6H PRN (Reason: pain) Qty: 50 0RF cephalexin 500 mg capsule 500 mg PO Q6H 7 Days Qty: 28 0RF ibuprofen 600 mg tablet 600 mg PO TID PRN (Reason: fever or pain) Qty: 30 0RF <Rossi Huff PA-C - Last Filed: 10/13/24 10:40> Follow-up/Referrals: UNKNOWN,DOCTOR [Primary Care Provider] <Rossi Huff PA-C - Last Filed: 10/13/24 10:40>
[2024-10-12 19:39] LABS: Hematocrit 43.5 % (42.0-52.0); Hemoglobin 15.3 g/dL (14.0-18.0); Immature Granulocyte Percent A 0.5 % (0-0.5); Lymphocytes Absolute Auto 3.19 K/mm3 (0.9-3.2); Mean Corpuscular HGB Conc 35.2 g/dl (32-36); Mean Corpuscular Hemoglobin 31.6 pg (26-34); Mean Corpuscular Volume 89.9 fl (80-100); Nucleated Red Blood Cells Absolute Auto 0.000 K/mm3 (0.0-0.012); Nucleated Red Blood Cells Perc 0.0 % (0.0-0.2); Platelet Count Result 236 k/mm3 (150-375); Red Blood Count 4.84 M/mm3 (4.6-6.20); White Blood Count 11.0 K/mm3 (4.5-10.0)
[2024-10-12 19:52] LABS: Anion Gap 10 mmol/L (4-12); Blood Urea Nitrogen 9 mg/dL (9-20); CRP 1.1 mg/dL (<1.0); Calcium 9.4 mg/dL (8.4-10.2); Carbon Dioxide 21 mmol/L (22-30); Chloride 107 mmol/L (98-107); Estimated CRCL calculation 113 ml/min; Estimated Glomerular Filt Rate > 60; Glucose 94 mg/dL (65-110); Potassium 3.7 mmol/L (3.4-5.0); Sodium 138 mmol/L (137-145)
--- OUTSIDE RECORDS SUMMARY | 2024-10-12 20:07 | XMS_ITS | Clinical Summary ---
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
[2024-10-12] MEDS: CEFEPIME 2 GM in SODIUM CHLORIDE 0.9% IV 50 ML 100 ML IVPB (22:44)
[2024-10-12 22:58] LABS: Hemoglobin A1C 5.5 % (<5.7)
[2024-10-12] MEDS: VANCOMYCIN 1,250 MG/NS 250 ML 1,250 MG/250 ML BAG 166.67 MG IVPB (23:22)
[2024-10-12 23:30] VITALS: BP 140/76; PULSE 76; RESP 16; TEMP 36.6; O2SAT 98
[2024-10-13] MEDS: VANCOMYCIN 1,250 MG/NS 250 ML 1,250 MG/250 ML BAG 166.67 MG IVPB (01:02)
[2024-10-13] MEDS: metroNIDAZOLE 500 MG/ISO 100ML 500 MG/100 ML BAG 100 MG IVPB (01:44)
[2024-10-13 02:31] VITALS: BP 133/71; PULSE 86; RESP 16; TEMP 37.1; O2SAT 97
== END 2024-10-13 02:32 | disposition home or self-care (01) ==
PROVIDERS: Emergency Medicine; Physician Assistant; Emergency Provider Student in an Organized Health Care Education/Training Program
DX: L98.8 Other specified disorders of the skin and subcutaneous tissue (principal); R11.10 Vomiting, unspecified; M67.873 Other specified disorders of tendon, right ankle and foot
CPT/HCPCS: 36415; 73610; 73701; 80048; 83036; 85025; 85652; 86140; 96365; 96366; 96367; 96368; 99284; J0692; J1836; J3373; Q9967

== ENCOUNTER 2024-10-15 11:02 | Outpatient (CLI) | payer OTHER, SELFPAY ==
--- NOTE | ~2024-10-15 | MR_ITS ---
MRI of the right ankle Clinical history: Acute hematogenous osteomyelitis Technique: Coronal proton-density and proton-density fat-sat images, axial proton-density and proton-density fat-sat images, and sagittal proton-density and proton-density fat-sat images were acquired. Findings: Syndesmotic ligaments are intact. Anterior and posterior talofibular ligaments, and calcaneofibular ligament are probably intact. Deltoid ligament intact. There is moderate to advanced tendinosis of the distal tibialis posterior tendon which is thickened and hyperintense. Remaining medial flexor tendons, peroneal tendons, anterior extensor tendons, and Achilles tendon are intact. There is no osteochondral lesion of the talar dome. No bone marrow edema or acute bone marrow signal abnormality seen. No evidence for acute osteomyelitis. There is chronic appearing benign cortical thickening or periosteal thickening at the medial aspect of the distal tibia. There is probable soft tissue ulceration at the medial aspect of the ankle/distal tibia with irregularity and possible artifact at the region of the flexor maximum. There is subcutaneous soft tissue edema along the medial aspect of the ankle without discrete fluid collection. Impression: No evidence for osteomyelitis or abscess. Soft tissue ulceration at the medial aspect of the distal tibia with surrounding soft tissue edema and probable irregularity artifact of the flexor retinaculum. Correlate for local soft tissue infection. Advanced tendinosis of the distal tibialis posterior tendon. No dislocation or subluxation of the medial flexor tendons seen. Reviewed, dictated and finalized at [facility]. Impression: No evidence for osteomyelitis or abscess. Soft tissue ulceration at the medial aspect of the distal tibia with surroundin g soft tissue edema and probable irregularity artifact of the flexor retinaculu m. Correlate for local soft tissue infection. Advanced tendinosis of the distal tibialis posterior tendon. No dislocation or subluxation of the medial flexor tendons seen.
== END 2024-10-15 11:03 | disposition home or self-care (01) ==
PROVIDERS: PCP Podiatrist Foot & Ankle Surgery; Visit Provider Podiatrist Foot & Ankle Surgery
DX: M86.071 Acute hematogenous osteomyelitis, right ankle and foot (principal)
CPT/HCPCS: 73721

== ENCOUNTER 2024-10-27 08:36 | Outpatient (CLI) | payer OTHER, SELFPAY ==
--- NOTE | ~2024-10-27 | US_ITS ---
US art doppler w press LE BI INDICATION: Peripheral arterial disease TECHNIQUE: Segmental pressures and plethysmographic and Doppler waveforms of the brachial and lower extremity arteries were obtained. COMPARISON: None. FINDINGS: Right and left brachial artery pressures of 126 mm Hg and 121 mm Hg, respectively, are concordant (normal difference <= 30 mmHg). There are mixed biphasic and triphasic waveforms throughout the lower extremity arteries. The right ankle-brachial index (AURA) is 1.38 (normal >= 0.9-1.0). The right great toe-brachial index (TBI) is 1.13 (normal >= 0.60). The left AURA is 1.22. The left TBI is 0.98. IMPRESSION: 1. Normal bilateral ankle-brachial indices. Reviewed, dictated and finalized at location O.
--- OUTSIDE RECORDS SUMMARY | 2024-10-27 08:40 | XMS_ITS | Clinical Summary ---
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
== END 2024-10-27 08:37 | disposition home or self-care (01) ==
PROVIDERS: Visit Provider Podiatrist Foot & Ankle Surgery
DX: I73.9 Peripheral vascular disease, unspecified (principal)
CPT/HCPCS: 93923

== ENCOUNTER 2024-12-03 06:56 | Outpatient (CLI) | payer OTHER, SELFPAY ==
--- NOTE | ~2024-12-03 | NM_ITS ---
[facility]: 12/03/2024 14:23 INDICATION: Chronic ulcer at the right ankle TECHNIQUE: 18.3 mCi Tc 99m Ceretec was administered intravenously. Delayed scintigraphic images of the bilateral feet and ankles were obtained in dorsal, plantar, medial and lateral projections. FINDINGS: Physiologic relatively symmetric distribution of activity throughout the bilateral feet, ankles and visualized calves. No suspicious foci of more intense activity to suggest a nidus of infection. IMPRESSION: 1. Normal Ceretec imaging of the bilateral feet and ankles with no foci of more intense activity to suggest a nidus of infection. Reviewed, dictated and finalized at location A. IMPRESSION: 1. Normal Ceretec imaging of the bilateral feet and ankles with no foci of mor e intense activity to suggest a nidus of infection.
== END 2024-12-03 06:57 | disposition home or self-care (01) ==
PROVIDERS: Visit Provider Podiatrist Foot & Ankle Surgery
DX: L97.319 Non-pressure chronic ulcer of right ankle with unspecified severity (principal)
CPT/HCPCS: 78800; A9569